=== PATIENT | male | born 1995 | race Caucasian/White ===

== ENCOUNTER → 2016-05-12 | Outpatient (CLI) | payer OTHER | END | disposition home or self-care (01) | LOC: CFH 12:14 | PROVIDERS: ATTEND Physician Assistant | DX: S92.355A Nondisplaced fracture of fifth metatarsal bone, left foot, initial encounter for closed fracture (principal); X58.XXXA Exposure to other specified factors, initial encounter; Y93.89 Activity, other specified; Y92.89 Other specified places as the place of occurrence of the external cause; Y99.8 Other external cause status ==

== ENCOUNTER 2020-08-06 09:44 | Inpatient (IN) | payer OTHER ==
[~2020-08-06] VITALS: Ht 193 cm; Wt 88.8 kg
[2020-08-06] MEDS ORDERED: LORazepam 2 MG/ML, 1ML ONE (10:26)
[2020-08-06] MEDS ORDERED: LORazepam 2 MG/ML, 1ML IVPush ONE (10:30)
[2020-08-06] MEDS ORDERED: SODIUM CHLORIDE FLUSH 10ML SYR IVF ONE (10:30)
[2020-08-06 10:47] LABS: BASOPHILS % (AUTO) 0 % (0-1); EOSINOPHILS % (AUTO) 1 % (1-7); LYMPHOCYTES % (AUTO) 26 % (22-44); MEAN CORPUSCULAR HEMOGLOBIN 32.4 pg (27.5-34.5); MEAN PLATELET VOLUME 8.1 fL (7.4-10.4); MONOCYTES % (AUTO) 8 % (2-9); NEUTROPHILS % (AUTO) 65 % (42-75); PLATELET COUNT 210 x10^3/uL (130-400); RED BLOOD COUNT 4.48 x10^6/uL (4.38-5.82); RED CELL DISTRIBUTION WIDTH 12.2 % (9.4-14.8)
[2020-08-06 10:57] LABS: ALANINE AMINOTRANSFERASE 25 U/L (12-78); ALBUMIN 3.7 g/dL (3.4-5.0); ANION GAP 7 mmol/L (5-15); CHLORIDE 109 mmol/L (98-107); CREATININE 0.85 mg/dL (0.7-1.3)
[2020-08-06 10:59] LABS: ALKALINE PHOSPHATASE 50 U/L (45-117); BILIRUBIN,TOTAL 0.8 mg/dL (0.2-1.0); TOTAL PROTEIN 7.5 g/dL (6.4-8.2)
[2020-08-06] MEDS ORDERED: OMNIPAQUE 350 MG/ML, 100ML BOTTLE ONE (11:44)
--- NOTE | 2020-08-06 13:04 | NUR ---
dr barnes spoke with dr carrion
[2020-08-06] MEDS ORDERED: ONDANSETRON 2MG/ML, 2ML IVPush ONE (13:30)
[2020-08-06] MEDS ORDERED: MORPHINE SULFATE 4 MG/ML, 1ML IVPush PRN (13:30)
[2020-08-06] MEDS ORDERED: AMPICILLIN/SULBACTAM 3 GM in SODIUM CHLORIDE 0.9% 100 ML IV ONE (13:30)
[2020-08-06] MEDS ORDERED: SODIUM CHLORIDE FLUSH 10ML SYR IVF PRN (13:30)
--- NOTE | 2020-08-06 13:36 | NUR ---
DR HUERTA AT BEDSIDE FOR EVALUATION
--- NOTE | 2020-08-06 14:09 | NUR ---
Pt report to [facility] Dawson
[2020-08-06] MEDS ORDERED: ONDANSETRON 2MG/ML, 2ML IVPush PRN (14:30)
[2020-08-06] MEDS ORDERED: KETOROLAC 30 MG/1 ML IV PRN (14:30)
[2020-08-06] MEDS ORDERED: ONDANSETRON ODT 4 MG PO PRN (14:30)
[2020-08-06] MEDS ORDERED: ACETAMINOPHEN 325 MG TABLET PO PRN (14:30)
[2020-08-06] MEDS: HYDROcodone/APAP 5/325 TABLET PO PRN ×3 (14:44→21:23)
[2020-08-06] MEDS: AMPICILLIN/SULBACTAM 3 GM in SODIUM CHLORIDE 0.9% 100 ML IV SCH ×2 (15:30→21:22)
[2020-08-06 15:45] VITALS: BP 108/68
[2020-08-06] MEDS: LACTATED RINGERS 1,000 ML IV SCH (16:32)
[2020-08-06] MEDS ORDERED: AMPICILLIN/SULBACTAM 3 GM in SODIUM CHLORIDE 0.9% 100 ML IV SCH (19:00)
[2020-08-06 19:21] VITALS: BP 99/63
[2020-08-07 00:58] VITALS: BP 108/53
[2020-08-07] MEDS: LACTATED RINGERS 1,000 ML IV SCH ×2 (01:10→13:34)
[2020-08-07] MEDS: AMPICILLIN/SULBACTAM 3 GM in SODIUM CHLORIDE 0.9% 100 ML IV SCH ×4 (04:19→22:52)
[2020-08-07 07:16] VITALS: BP 114/63
[2020-08-07] MEDS: KETOROLAC 30 MG/1 ML IV SCH ×3 (09:42→22:55)
[2020-08-07 12:56] VITALS: BP 115/76
[2020-08-07] MEDS: HYDROcodone/APAP 5/325 TABLET PO PRN ×2 (13:30→20:21)
[2020-08-07 19:05] VITALS: BP 105/63
[2020-08-08 00:15] VITALS: BP 117/72
[2020-08-08] MEDS: AMPICILLIN/SULBACTAM 3 GM in SODIUM CHLORIDE 0.9% 100 ML IV SCH ×2 (04:31→10:38)
[2020-08-08] MEDS: LACTATED RINGERS 1,000 ML IV SCH (04:31)
[2020-08-08] MEDS: KETOROLAC 30 MG/1 ML IV SCH ×2 (04:36→10:38)
[2020-08-08 05:34] LABS: ANION GAP 7 mmol/L (5-15); CALCIUM 8.7 mg/dL (8.5-10.1); CHLORIDE 110 mmol/L (98-107); CREATININE 0.78 mg/dL (0.7-1.3)
[2020-08-08 05:36] LABS: BASOPHILS % (AUTO) 0 % (0-1); EOSINOPHILS % (AUTO) 2 % (1-7); LYMPHOCYTES % (AUTO) 37 % (22-44); MEAN CORPUSCULAR HEMOGLOBIN 32.6 pg (27.5-34.5); MEAN CORPUSCULAR HGB CONC 33.9 g/dL (33.2-36.2); MONOCYTES % (AUTO) 8 % (2-9); NEUTROPHILS % (AUTO) 53 % (42-75); PLATELET COUNT 209 x10^3/uL (130-400); RED CELL DISTRIBUTION WIDTH 12.2 % (9.4-14.8)
[2020-08-08 06:42] VITALS: BP 108/69
[2020-08-08] MEDS ORDERED: HYDR-2214 PO (10:48)
[2020-08-08] MEDS ORDERED: IBUP-1222 PO (10:48)
[2020-08-09] MEDS ORDERED: AMOX1TAB12 PO ×2 (07:01→07:02)
== END 2020-08-08 12:45 | disposition home or self-care (01) | DRG 159 ==
LOC: ED 12:16 → SUATTDRO 13:21 → OBSVTOIN 13:25 → INTOOBSV 13:25 → EDIP 13:25 → 4NW 14:20
PROVIDERS: ADMIT Family Medicine; ATTEND Family Medicine
DX: K12.2 Cellulitis and abscess of mouth (principal); F12.90 Cannabis use, unspecified, uncomplicated; F41.9 Anxiety disorder, unspecified
CPT/HCPCS: 36415; 70491; 80048; 80053; 85025; 96374; 96375; 99285; G0378; J0295; J1885; Q9967; J2060; J7120